=== PATIENT | male | born 1945 | race Caucasian/White ===

== ENCOUNTER → 2022-09-27 08:32 | Outpatient (CLI) | payer BC, SELFPAY ==
[2022-09-27 20:08] LABS: BUN Creatinine Ratio 20.3 (6-22); Blood Urea Nitrogen 14 mg/dL (9-20); Calcium 8.8 mg/dL (8.4-10.2); Carbon Dioxide 28 mmol/L (22-32); Chloride 104 mmol/L (98-107); Cholesterol 215 mg/dL (140-199); Estimated Glomerular Filt Rate > 60 mL/min (>60); Glucose 101 mg/dL (80-110); HDL Cholesterol 53 mg/dL (40-60); HEMOLYSIS 22 (0-50); LDL Cholesterol Calculated 134 mg/dL (<100); Potassium 4.5 mmol/L (3.4-5.1); Sodium 137 mmol/L (137-145); Triglycerides 140 mg/dL (35-150)
[2022-09-27 20:30] LABS: Add Manual Diff / Slide Review NO; Basophils Absolute Auto 0 /uL (0-100); Basophils Percent Auto 0.6 % (0-2); Eosinophils Absolute Auto 100 /uL (0-450); Eosinophils Percent Auto 2.9 % (2-4); Hematocrit 46.1 % (41-53); Hemoglobin 15.6 g/dL (13.5-17.5); Lymphocytes Absolute Auto 1000 /uL (1100-4500); Lymphocytes Percent Auto 22.5 % (25-40); Mean Corpuscular HGB Conc 33.9 % (30-36); Mean Corpuscular Hemoglobin 30.4 PG (26-34); Mean Corpuscular Volume 89.7 fL (80-100); Monocytes Absolute Auto 300 /uL (0-900); Monocytes Percent Auto 7.6 % (3-14); Neutrophils Absolute Auto 3000 /uL (1500-7000); Neutrophils Percent Auto 66.4 % (50-75); Platelet Count 147 X10^3/uL (150-400); Red Blood Cell Count 5.13 X10^6/uL (4.5-5.9); Red Cell Distribution Width 14.7 % (11.6-14.8); White Blood Cell Count 4.6 X10^3/uL (4.5-11.0)
[2022-09-27 20:40] LABS: TSH w/ Reflex to FT4 1.18 uIU/mL (0.47-4.68)
[2022-09-27 20:59] LABS: Vitamin B12 260 pg/mL (239-931)
[2022-09-27 21:16] LABS: Creatinine Urine Random 123.6 mg/dL
[2022-09-27 21:20] LABS: Microalbumi Creatinin Ratio Ur 4.8 ug/mg CR (<30); Microalbumin Urine Random 0.6 mg/dL (0-1.6)
[2022-09-29 03:07] LABS: x Labcorp Estim. Avg Glu (eAG) 117 mg/dL (.); x Labcorp Hemoglobin A1c 5.7 % (4.8-5.6)
== END ==
PROVIDERS: PCP Family Medicine; Visit Provider Family Medicine
DX: E11.9 Type 2 diabetes mellitus without complications (principal); E78.2 Mixed hyperlipidemia; I10 Essential (primary) hypertension; R41.3 Other amnesia
CPT/HCPCS: 80048; 80061; 82043; 82570; 82607; 83036; 84443; 85025

== ENCOUNTER → 2023-02-28 09:29 | Outpatient (CLI) | payer BC, SELFPAY ==
[2023-02-28 19:04] LABS: Alanine Aminotransferase 29 IU/L (<50); Albumin 3.9 g/dL (3.5-5.0); Albumin Globulin Ratio 1.5 (1.0-2.8); Alkaline Phosphatase 82 U/L (38-126); Aspartate Aminotransferase 34 IU/L (17-59); BUN Creatinine Ratio 21.7 (6-22); Blood Urea Nitrogen 18 mg/dL (9-20); Calcium 8.9 mg/dL (8.4-10.2); Carbon Dioxide 28 mmol/L (22-32); Chloride 103 mmol/L (98-107); Cholesterol 200 mg/dL (140-199); Estimated Glomerular Filt Rate > 60 mL/min (>60); Globulin 2.6 g/dL (1.7-4.1); Glucose 99 mg/dL (80-110); HDL Cholesterol 67 mg/dL (40-60); HEMOLYSIS 16 (0-50); LDL Cholesterol Calculated 117 mg/dL (<100); Potassium 4.4 mmol/L (3.4-5.1); Sodium 137 mmol/L (137-145); Total Protein 6.5 g/dL (6.3-8.2); Triglycerides 82 mg/dL (35-150)
[2023-02-28 19:09] LABS: Add Manual Diff / Slide Review NO; Basophils Absolute Auto 0 /uL (0-100); Basophils Percent Auto 0.5 % (0-2); Eosinophils Absolute Auto 0 /uL (0-450); Eosinophils Percent Auto 0.8 % (2-4); Hematocrit 44.5 % (41-53); Lymphocytes Absolute Auto 900 /uL (1100-4500); Lymphocytes Percent Auto 17.9 % (25-40); Mean Corpuscular HGB Conc 33.8 % (30-36); Mean Corpuscular Hemoglobin 30.8 PG (26-34); Mean Corpuscular Volume 91.1 fL (80-100); Monocytes Absolute Auto 400 /uL (0-900); Monocytes Percent Auto 7.8 % (3-14); Neutrophils Absolute Auto 3700 /uL (1500-7000); Platelet Count 154 X10^3/uL (150-400); Red Blood Cell Count 4.89 X10^6/uL (4.5-5.9)
[2023-02-28 19:40] LABS: Hemoglobin A1C% w Est Avg Glu 5.3 % (4.0-6.0)
[2023-02-28 19:52] LABS: Vitamin B12 246 pg/mL (239-931)
[2023-02-28 20:20] LABS: Creatinine Urine Random 199.6 mg/dL
[2023-02-28 20:24] LABS: Microalbumin Urine Random 0.8 mg/dL (0-1.6)
== END ==
PROVIDERS: PCP Family Medicine; Visit Provider Family Medicine
DX: E11.9 Type 2 diabetes mellitus without complications (principal); I10 Essential (primary) hypertension; D69.6 Thrombocytopenia, unspecified; E78.2 Mixed hyperlipidemia
CPT/HCPCS: 80053; 80061; 82043; 82570; 82607; 83036; 85025

== ENCOUNTER → 2023-08-23 09:33 | Outpatient (CLI) | payer MEDICARE, OTHER, SELFPAY ==
[2023-08-23 18:47] LABS: Add Manual Diff / Slide Review NO; Basophils Absolute Auto 0 /uL (0-100); Basophils Percent Auto 0.4 % (0-2); Eosinophils Absolute Auto 100 /uL (0-450); Hematocrit 44.6 % (41-53); Hemoglobin 14.9 g/dL (13.5-17.5); Lymphocytes Absolute Auto 900 /uL (1100-4500); Mean Corpuscular HGB Conc 33.4 % (30-36); Mean Corpuscular Hemoglobin 30.2 PG (26-34); Mean Corpuscular Volume 90.2 fL (80-100); Monocytes Absolute Auto 400 /uL (0-900); Monocytes Percent Auto 7.2 % (3-14); Neutrophils Absolute Auto 4100 /uL (1500-7000); Neutrophils Percent Auto 74.4 % (50-75); Platelet Count 150 X10^3/uL (150-400); Red Blood Cell Count 4.94 X10^6/uL (4.5-5.9); Red Cell Distribution Width 14.2 % (11.6-14.8); White Blood Cell Count 5.5 X10^3/uL (4.5-11.0)
[2023-08-23 19:04] LABS: Alanine Aminotransferase 28 IU/L (<50); Albumin 4.2 g/dL (3.5-5.0); Albumin Globulin Ratio 1.7 (1.0-2.8); Alkaline Phosphatase 95 U/L (38-126); Aspartate Aminotransferase 33 IU/L (17-59); Bilirubin Total 1.2 mg/dL (0.2-1.3); Blood Urea Nitrogen 18 mg/dL (9-20); Calcium 8.9 mg/dL (8.4-10.2); Carbon Dioxide 29 mmol/L (22-32); Chloride 108 mmol/L (98-107); Cholesterol 115 mg/dL (140-199); Estimated Glomerular Filt Rate > 60 mL/min (>60); Globulin 2.5 g/dL (1.7-4.1); Glucose 99 mg/dL (80-110); HDL Cholesterol 60 mg/dL (40-60); HEMOLYSIS < 15 (0-50); LDL Cholesterol Calculated 43 mg/dL (<100); Potassium 4.1 mmol/L (3.4-5.1); Sodium 141 mmol/L (137-145); Total Protein 6.7 g/dL (6.3-8.2); Triglycerides 59 mg/dL (35-150)
[2023-08-23 19:29] LABS: Hemoglobin A1C% w Est Avg Glu 5.6 % (4.0-6.0)
[2023-08-23 19:44] LABS: TSH w/ Reflex to FT4 1.12 uIU/mL (0.47-4.68)
[2023-08-23 19:45] LABS: Creatinine Urine Random 229.8 mg/dL
[2023-08-23 19:49] LABS: Microalbumi Creatinin Ratio Ur 8.2 ug/mg CR (<30); Microalbumin Urine Random 1.9 mg/dL (0-1.6)
[2023-08-23 20:06] LABS: Folate 13.3 ng/mL (2.76-20.0); Vitamin B12 302 pg/mL (239-931)
[2023-08-27 16:16] LABS: ANA Screen, IFA Negative (.)
== END ==
PROVIDERS: PCP Family Medicine; Visit Provider Family Medicine
DX: E78.2 Mixed hyperlipidemia (principal); E11.9 Type 2 diabetes mellitus without complications; R41.3 Other amnesia; D69.6 Thrombocytopenia, unspecified; I27.20 Pulmonary hypertension, unspecified; K50.90 Crohn's disease, unspecified, without complications; I10 Essential (primary) hypertension; R41.89 Other symptoms and signs involving cognitive functions and awareness
CPT/HCPCS: 80053; 80061; 82043; 82570; 82607; 82746; 83036; 84443; 85025; 86038